=== PATIENT | female | born 1990 | race Hispanic/Latino ===

== ENCOUNTER 2017-08-02 21:24 | Emergency (ER) | payer MEDICARE ==
[2017-08-02 22:06] VITALS: BP 94/45
[2017-08-02] MEDS ORDERED: XYLOCAINE 2% INFILTRATI ONE ×2 (22:52→22:59)
[2017-08-02] MEDS ORDERED: NACL 0.9% 500 ML IR ONE (22:57)
[2017-08-02] MEDS ORDERED: NACL 0.9% IR ONE (22:59)
--- NOTE | 2017-08-02 23:27 | XRay Report ---
FINAL REPORT PROCEDURE: XR WRIST 2V RT TECHNIQUE: Right wrist radiographs, AP and lateral views. HISTORY: opened sutures with paper clip COMPARISON: No prior studies are available for comparison. FINDINGS: Fracture(s)and/or Dislocation(s): None. Alignment: Normal. Joint space(s): Normal. Soft tissues: Soft tissue swelling and injury of the distal forearm. Bone mineralization: Normal. Foreign bodies: None. IMPRESSION: Soft tissue swelling. No radiopaque foreign body.
[2017-08-02] MEDS ORDERED: KEFLEX PO ONE (23:45)
--- NOTE | 2017-08-02 23:50 | Emergency Department Report ---
- General Chief Complaint: Laceration/Recheck/Suture Stated Complaint: SUICIDAL/MH Time Seen by Provider: 08/02/17 22:01 Source: patient, EMS Mode of arrival: Stretcher Limitations: No Limitations - History of Present Illness Initial Comments: 26-year-old female presents from [facility] after re-opening a recently healed laceration. Patient had a self inflected vertical right forearm laceration on the volar surface. She had sutures removed from this wound on July 30 with good wound healing. No significant pain reported. No active bleeding. Patient is right-hand dominant - Related Data Home Medications Medication Instructions Recorded Confirmed Last Taken Cetirizine HCl [ZyrTEC] 10 mg PO DAILY 02/14/16 08/07/16 Unknown diphenhydrAMINE [Benadryl CAP] 50 mg PO QHS 02/14/16 08/07/16 Unknown Escitalopram [Lexapro] 10 mg PO DAILY 08/07/16 08/07/16 Unknown Haloperidol [Haldol] 5 mg PO QAM 08/07/16 08/07/16 Unknown Haloperidol [Haldol] 10 mg PO DAILY 08/07/16 08/07/16 Unknown OXcarbazepine [Trileptal] 150 mg PO BID 08/07/16 08/07/16 Unknown chlorproMAZINE [Thorazine] 100 mg PO Q4H PRN 08/07/16 08/07/16 Unknown cloNIDine [Catapres] 0.1 mg PO Q8H PRN 08/07/16 08/07/16 Unknown Previous Rx's Medication Instructions Recorded Last Taken Type Cephalexin [Keflex] 500 mg PO Q8HR 7 Days 08/02/17 Unknown Rx Allergies Allergy/AdvReac Type Severity Reaction Status Date / Time divalproex sodium Allergy Unknown Verified 08/07/16 17:02 [From Depakote] doxepin Allergy Unknown Verified 08/07/16 17:02 losartan Allergy Unknown Verified 08/07/16 17:02 prazosin Allergy Shortness Verified 02/24/16 10:12 of Breath ED Review of Systems ROS: Stated complaint: SUICIDAL/MH Other details as noted in HPI Comment: All other systems reviewed and negative Other: Constitutional: No fevers chills Eyes: No eye pain visual changes ENT: No ear pain or throat pain Neck: Denies pain Respiratory: Denies cough wheezing shortness of breath Cardiovascular: Denies chest pain, palpitations, syncope GI: Denies abdominal pain, nausea, vomiting, diarrhea : Denies dysuria, urinary frequency, or urgency Musculoskeletal: Denies back pain Skin: as per hpi Neurologic: Denies headache, numbness, weakness ED Past Medical Hx - Past Medical History Previous Medical History?: Yes Hx Hypertension: No Hx Psychiatric Treatment: Yes (Bipolar, PTSD, Personality Disorder, Schizophrenia) Additional medical history: self mutilation,colitis - Surgical History Past Surgical History?: Yes Hx Cholecystectomy: Yes Additional Surgical History: Ear, arm, nose, forehead - Social History Smoking Status: Former Smoker Substance Use Type: None - Medications Home Medications: Home Medications Medication Instructions Recorded Confirmed Last Taken Type Cetirizine HCl [ZyrTEC] 10 mg PO DAILY 02/14/16 08/07/16 Unknown History diphenhydrAMINE [Benadryl CAP] 50 mg PO QHS 02/14/16 08/07/16 Unknown History Escitalopram [Lexapro] 10 mg PO DAILY 08/07/16 08/07/16 Unknown History Haloperidol [Haldol] 5 mg PO QAM 08/07/16 08/07/16 Unknown History Haloperidol [Haldol] 10 mg PO DAILY 08/07/16 08/07/16 Unknown History OXcarbazepine [Trileptal] 150 mg PO BID 08/07/16 08/07/16 Unknown History chlorproMAZINE [Thorazine] 100 mg PO Q4H PRN 08/07/16 08/07/16 Unknown History cloNIDine [Catapres] 0.1 mg PO Q8H PRN 08/07/16 08/07/16 Unknown History Cephalexin [Keflex] 500 mg PO Q8HR 7 Days 08/02/17 Unknown Rx ED Physical Exam - General Limitations: No Limitations - Other Other exam information: General: No limitations, patient is alert in no acute distress Head exam: Atraumatic, normocephalic Eyes exam: Normal appearance ENT: Moist mucous membrane, normal oropharynx Neck exam: Normal inspection Respiratory exam: Clear to auscultation bilateral, no wheezes, rales, crackles Cardiovascular: Normal rate and rhythm, normal heart sounds Abdomen: Soft, nondistended, and nontender, with normal bowel sounds, no rebound, or guarding Extremity: Full range of motion normal inspection no deformity Back: Normal Inspection, full range of motion, no tenderness Neurologic: Alert, oriented x3, cranial nerves intact, no motor or sensory deficit Psychiatric: normal affect, normal mood Skin: Healed right forearm laceration on volar surface. Distal 4 cm with wound dehiscence with exposed muscle. Bilateral forearm previously healed laceration ED Course Vital Signs 08/02/17 08/02/17 22:02 22:10 Temperature 98.3 F Pulse Rate 75 Respiratory 16 18 Rate Blood Pressure 94/45 [Left] O2 Sat by Pulse 96 96 Oximetry - Consultations Consultation #1: 08/02/17 23:[address] Hallman surgeon director of home economics regarding appropriate closure of the opened previous healed laceration. Recommends loose approximation with iodoform gauze wick placed within the wound to be rechecked and removed in 3 days. Sutures to be removed in 7-10 days. Prophylactic antibiotics recommended - Laceration /Wound Repair Right Volar Arm Wound Location: upper extremity (right forearm) Wound Length (cm): 4 Wound's Depth, Shape: linear Wound Explored: clean Anesthesia: 1% Lidocaine Volume Anesthetic (ccs): 7 Wound Debrided: minimal Wound Repaired With: sutures Suture Size/Type: 3:0, proline Number of Sutures: 3 Layer Closure?: No Sterile Dressing Applied?: Yes Progress: Iodoform 1/4 gauze wick placed in wound and pulled between sutures to allow drainage of the wound ED Medical Decision Making - Radiology Data Radiology results: report reviewed (right forearm x-ray: No foreign body) - Medical Decision Making Patient has self-inflicted wound dehiscence of her recently treated right forearm laceration. 3 stitches placed with gauze as per surgery recommendations. Patient will need to be seen in 3 days for gauze wick removal and wound recheck. Sutures to be removed in 7-10 days. Wound dressing applied prior to discharge and patient will be discharged back to [facility] - Differential Diagnosis foreign body, wound dehiscence, laceration Critical Care Time: No Critical care attestation.: If time is entered above; I have spent that time in minutes in the direct care of this critically ill patient, excluding procedure time. ED Disposition Clinical Impression: Wound dehiscence, Injury, self-inflicted Forearm laceration Qualifiers: Encounter type: subsequent encounter Laterality: right Qualified Code(s): S51.811D - Laceration without foreign body of right forearm, subsequent encounter Disposition: DC-01 TO HOME OR SELFCARE Is pt being admited?: No Does the pt Need Aspirin: No Condition: Stable Instructions: Laceration (ED) Additional Instructions: You are at risk of infection. A gauze wick was placed with 3 stitches. Gauze wick should be removed and wound should be rechecked in 72 hours on August 05. If you are unable to go to the wound care clinic please return to the ER. Please continue to monitor for signs of infection stitches should be removed in 7-10 days. Take prophylactic antibiotics as prescribed Prescriptions: Cephalexin [Keflex] 500 mg PO Q8HR 7 Days Referrals: [facility] [[facility]] - 08/05/17 Time of Disposition: 00:00
== END 2017-08-03 01:44 | disposition home or self-care (01) ==
LOC: ED 21:24
DX: S51.811A Laceration without foreign body of right forearm, initial encounter (principal); T81.30XA Disruption of wound, unspecified, initial encounter; Z88.8 Allergy status to other drugs, medicaments and biological substances; F20.9 Schizophrenia, unspecified; F31.9 Bipolar disorder, unspecified; Z90.49 Acquired absence of other specified parts of digestive tract; Z87.891 Personal history of nicotine dependence